=== PATIENT | male | born 1995 | race Caucasian/White ===

== ENCOUNTER 2019-02-22 23:36 | Emergency (ER) | payer BC ==
[~2019-02-22] VITALS: Ht 172.7 cm; Wt 68.2 kg
[2019-02-22 23:43] VITALS: Ht 172.7 cm; Wt 68.2 kg
[2019-02-22] MEDS ORDERED: KEPPRA500 MG PO (23:45)
[2019-02-23] MEDS ORDERED: CYCLOBENZAPRINE10 MG PO (00:49)
[2019-02-23] MEDS ORDERED: IBUPROFEN800 MG PO (00:49)
[2019-02-23] MEDS ORDERED: ACETAMINOPHEN500 M1 PO (00:49)
[2019-02-23 01:22] VITALS: BP 127/75
== END 2019-02-23 01:22 | disposition home or self-care (01) ==
LOC: D.ER 23:36
DX: M25.511 Pain in right shoulder (principal); S40.011A Contusion of right shoulder, initial encounter; V49.49XA Driver injured in collision with other motor vehicles in traffic accident, initial encounter; F17.200 Nicotine dependence, unspecified, uncomplicated